=== PATIENT | female | born 1935 | race African-American/Black ===

== ENCOUNTER 2018-01-27 07:08 | Emergency (ER) | payer MEDICARE, BC ==
[~2018-01-27] VITALS: Ht 167.6 cm; Wt 91.0 kg
[2018-01-27] MEDS ORDERED: ACETAMINOPHEN 325MG TABLET PO ONE (07:45)
[2018-01-27 10:25] VITALS: BP 160/87
== END 2018-01-27 10:28 | disposition home or self-care (01) ==
LOC: ER 07:31
DX: S02.40EA Zygomatic fracture, right side, initial encounter for closed fracture (principal); S00.11XA Contusion of right eyelid and periocular area, initial encounter; I10 Essential (primary) hypertension; Z88.0 Allergy status to penicillin; W06.XXXA Fall from bed, initial encounter; Y93.89 Activity, other specified; Y92.89 Other specified places as the place of occurrence of the external cause; Y99.8 Other external cause status
CPT/HCPCS: 70450; 70486; 99284